=== PATIENT | female | born 1960 | race Two or more races ===

== ENCOUNTER 2020-06-17 09:48 | Outpatient (CLI) | payer OTHER | END 2020-06-17 10:10 | disposition home or self-care (01) | LOC: RX STUDY 09:48 → SONOGRAMA 09:48 | PROVIDERS: ATTEND Obstetrics & Gynecology Gynecology | DX: N84.0 Polyp of corpus uteri (principal) ==

== ENCOUNTER 2021-07-29 06:38 | Outpatient (CLI) | payer OTHER ==
[2021-08-04] MEDS ORDERED: MICARDIS HCT 81 EACH PO (10:23)
[2021-08-04] MEDS ORDERED: SIMVAST PO (10:23)
[2021-08-04] MEDS ORDERED: LEVOXYL25 MCG PO (10:24)
== END 2021-07-29 06:40 | disposition home or self-care (01) ==
LOC: LAB 06:38
PROVIDERS: ATTEND Obstetrics & Gynecology Gynecology
DX: D64.89 Other specified anemias (principal); N39.0 Urinary tract infection, site not specified; I10 Essential (primary) hypertension

== ENCOUNTER 2021-07-29 07:30 | Outpatient (CLI) | payer OTHER ==
[2021-08-04] MEDS ORDERED: SIMVAST PO (10:23)
[2021-08-04] MEDS ORDERED: MICARDIS HCT 81 EACH PO (10:23)
[2021-08-04] MEDS ORDERED: LEVOXYL25 MCG PO (10:24)
== END 2021-07-29 07:34 | disposition home or self-care (01) ==
LOC: SONOGRAMA 07:30
PROVIDERS: ATTEND Obstetrics & Gynecology Gynecology
DX: N84.0 Polyp of corpus uteri (principal); I10 Essential (primary) hypertension

== ENCOUNTER 2021-08-08 05:30 | Day surgery (SDC) | payer OTHER ==
[~2021-08-08 05:30] MED LIST: LEVOXYL25 MCG PO; MICARDIS HCT 81 EACH PO; SIMVAST PO
[2021-08-08] MEDS ORDERED: IBU600 MG PO (09:22)
== END 2021-08-08 13:35 | disposition home or self-care (01) ==
LOC: CIR.AMB 05:30
PROVIDERS: ATTEND Obstetrics & Gynecology Gynecology
DX: N84.0 Polyp of corpus uteri (principal); I10 Essential (primary) hypertension; E78.5 Hyperlipidemia, unspecified; E03.9 Hypothyroidism, unspecified